=== PATIENT | male | born 1955 | race Caucasian/White ===

== ENCOUNTER 2017-04-22 10:35 | Emergency (ER) | payer BC ==
[~2017-04-22] VITALS: Ht 182.9 cm; Wt 77.7 kg
[~2017-04-22 10:35] MED LIST: OXYC-360 PO; PENI500T PO; PRED5 PO
[2017-04-22 10:39] VITALS: BP 186/79; PULSE 86; RESP 16; TEMP 97.9; O2SAT 97
[2017-04-22] MEDS ORDERED: DEXAMETHASONE SOD PHOS 4 MG/ML VIAL IM ONE (11:00)
--- NOTE | 2017-04-22 11:10 | PD ---
HPI Chief Complaint: Musculoskeletal Complaint Time Seen by Provider: 10:43 Travel History International Travel<30 days: No Contact w/Intl Traveler<30days: No Traveled to known affect area: No History of Present Illness HPI This is a 62-year-old male here with "arthritic pain". He reports worsening pain in his ankles, wrist, fingers over the last week. He denies fever or chills. He reports he's had similar pain in the past with his arthritis flares. He denies history of RA. He reports he has had symptom improvement with steroid shots in the past. He also has history of hypertension and has not taken his blood pressure medication today. Denies headache, visual changes , chest pain, shortness breath. Symptom severity is mild to moderate. Slightly relieved with Tylenol. PFSH Past Medical History Arthritis: Yes (RHEUMATOID) Diminished Hearing: No Immunizations Current: Yes Past Surgical History Thoracic Surgery: Yes (1969--L.LUNG SURGERY,GLASS REMOVED) Social History Alcohol Use: Yes ("FEW DRINKS EVERY NIGHT") Tobacco Use: Yes (1 PACK OF CIGARETTES/DAY FOR PAST 36YRS) Substance Use: No Allergies-Medications (Allergen,Severity, Reaction): Coded Allergies: No Known Allergies (Verified Allergy, Mild, 04/22/17) Reported Meds & Prescriptions Reported Meds & Active Scripts Active No Active Prescriptions or Reported Medications Review of Systems Except as stated in HPI: all other systems reviewed are Neg General / Constitutional: No: Fever HENT: No: Headaches Cardiovascular: No: Chest Pain or Discomfort Respiratory: No: Shortness of Breath Gastrointestinal: No: Abdominal Pain Genitourinary: No: Dysuria Musculoskeletal: Positive: Pain Skin: No Rash Physical Exam Narrative GENERAL: Alert and well-appearing 60-year-old male SKIN: Warm and dry. No rash HEAD: Normocephalic. EYES: No injection or drainage. NECK: Supple CARDIOVASCULAR: Regular rate and rhythm RESPIRATORY: Breath sounds equal bilaterally. No accessory muscle use. GASTROINTESTINAL: Abdomen soft, non-tender, nondistended. MUSCULOSKELETAL: No cyanosis, or edema. + Mild tenderness to bilateral ankles, MCP joints, bilateral wrists. No joint deformity. No warmth or erythema. Full range of motion. BACK: Nontender without obvious deformity. No CVA tenderness. Data Data Last Documented VS Vital Signs Date Time Temp Pulse Resp B/P (MAP) Pulse Ox O2 Delivery O2 Flow Rate FiO2 04/22/17 10:39 97.9 86 16 186/79 (114) 97 Orders Orders Dexamethasone Inj (Decadron Inj) (04/22/17 11:00) MDM Medical Decision Making Medical Screen Exam Complete: Yes Emergency Medical Condition: Yes Differential Diagnosis Rheumatoid arthritis, osteoarthritis, Other Narrative Course This is a 62-year-old male who is well-appearing. He is reporting polyarthralgia which she has had in the past. His symptoms had previously been treated with steroids. No fever or chills. Hypertensive on arrival, BP recheck 148/88. He was given a shot of Decadron. He has a follow-up appointment with his primary doctor this week. He was encouraged to have his BP rechecked. Discussed possible further workup for RA. Diagnosis Primary Impression: Arthralgia Qualified Codes: M25.50 - Pain in unspecified joint Referrals: Primary Care Physician Additional Instructions: Ibuprofen 800 mg every 6 hours as needed for pain. Follow-up with her primary doctor for blood pressure recheck. Return if he developed new or worsening symptoms Scripts No Active Prescriptions or Reported Meds Disposition: 01 DISCHARGE HOME Condition: Stable Yolie Oquendo Apr 22, 2017 11:10
== END 2017-04-22 11:20 | disposition home or self-care (01) ==
LOC: PHEFT 10:35
DX: M25.572 Pain in left ankle and joints of left foot (principal); M25.571 Pain in right ankle and joints of right foot; M25.532 Pain in left wrist; M25.531 Pain in right wrist; M06.9 Rheumatoid arthritis, unspecified; I10 Essential (primary) hypertension; F17.210 Nicotine dependence, cigarettes, uncomplicated
CPT/HCPCS: 96372; 99282; J1100

== ENCOUNTER 2017-05-27 12:15 | Emergency (ER) | payer BC ==
[~2017-05-27] VITALS: Ht 182.9 cm; Wt 79.3 kg
[2017-05-27 12:18] VITALS: BP 162/75; PULSE 78; RESP 18; TEMP 97.6; O2SAT 98
[2017-05-27] MEDS ORDERED: METH2.5T PO (12:42)
[2017-05-27] MEDS ORDERED: CEPH-460 PO (12:47)
--- NOTE | 2017-05-27 12:47 | PD ---
HPI Chief Complaint: Edema Time Seen by Provider: 12:34 Travel History International Travel<30 days: No Contact w/Intl Traveler<30days: No Traveled to known affect area: No History of Present Illness HPI This 62-year-old male noted swelling in the left side of his face several hours ago. It is uncomfortable but not severely painful. He has not had this before. There is no history of trauma. He has significant rheumatoid arthritis and is on methotrexate. PFSH Past Medical History Arthritis: Yes (RHEUMATOID) Diminished Hearing: No Immunizations Current: Yes Past Surgical History Thoracic Surgery: Yes (1969--L.LUNG SURGERY,GLASS REMOVED) Social History Alcohol Use: Yes (1-2 drinks nightly) Tobacco Use: Yes (1/2 ppd) Substance Use: No Allergies-Medications (Allergen,Severity, Reaction): Coded Allergies: No Known Allergies (Verified Allergy, Mild, 05/27/17) Reported Meds & Prescriptions Reported Meds & Active Scripts Active Reported Methotrexate 2.5 Mg Tab 5 Mg PO Q7D Review of Systems General / Constitutional: No: Fever, Chills Eyes: No: Diploplia, Blurred Vision HENT: No: Headaches, Vertigo Cardiovascular: No: Chest Pain or Discomfort, Palpitations Respiratory: No: Cough, Shortness of Breath Gastrointestinal: No: Nausea, Vomiting Genitourinary: No: Urgency, Frequency Musculoskeletal: Positive: Myalgias, Arthralgias Skin: No Rash Neurologic: No: Weakness Hematologic/Lymphatic: No: Easy Bruising Physical Exam Narrative GENERAL: Well-developed male SKIN: Focused skin assessment warm/dry. HEAD: Atraumatic. Normocephalic. EYES: Pupils equal and round. No scleral icterus. No injection or drainage. ENT: No nasal bleeding or discharge. Mucous membranes pink and moist. The left parotid gland is swollen and tender. NECK: Trachea midline. No JVD. CARDIOVASCULAR: Regular rate and rhythm. No murmur appreciated. RESPIRATORY: No accessory muscle use. Clear to auscultation. Breath sounds equal bilaterally. GASTROINTESTINAL: Abdomen soft, non-tender, nondistended. Hepatic and splenic margins not palpable. MUSCULOSKELETAL: No obvious deformities. No clubbing. No cyanosis. No edema. NEUROLOGICAL: Awake and alert. No obvious cranial nerve deficits. Motor grossly within normal limits. Normal speech. PSYCHIATRIC: Appropriate mood and affect; insight and judgment normal. Data Data Last Documented VS Vital Signs Date Time Temp Pulse Resp B/P (MAP) Pulse Ox O2 Delivery O2 Flow Rate FiO2 05/27/17 12:40 Room Air 05/27/17 12:18 97.6 78 18 162/75 (104) 98 MDM Medical Decision Making Medical Screen Exam Complete: Yes Emergency Medical Condition: Yes Medical Record Reviewed: Yes Differential Diagnosis Differential includes parotitis, parotid duct stone, parotid tumor Narrative Course She will be started on Keflex. I have recommended lemon drops. He is to follow -up with his own medical doctor Diagnosis Primary Impression: Parotitis, acute Scripts Cephalexin (Keflex) 500 Mg Capsule 500 MG PO Q6H for Infection for 10 Days, #40 CAP 0 Refills Prov: Ernie Jacob MD 05/27/17 Disposition: 01 DISCHARGE HOME Condition: Stable Ernie Jacob MD May 27, 2017 12:47
== END 2017-05-27 13:12 | disposition home or self-care (01) ==
LOC: PHED 12:15
DX: K11.21 Acute sialoadenitis (principal); M06.9 Rheumatoid arthritis, unspecified; F17.200 Nicotine dependence, unspecified, uncomplicated
CPT/HCPCS: 99283